=== PATIENT | female | born 1990 | race Two or more races ===

== ENCOUNTER 2021-04-10 09:06 | Emergency (ER) | payer OTHER ==
[~2021-04-10] VITALS: Ht 149.9 cm; Wt 58.1 kg
[2021-04-10 09:28] VITALS: BP 98/55
== END 2021-04-10 10:25 | disposition home or self-care (01) ==
LOC: ER 09:06
DX: G56.02 Carpal tunnel syndrome, left upper limb (principal)
CPT/HCPCS: 29125; 81002; 81025

== ENCOUNTER 2022-10-17 20:32 | Emergency (ER) | payer OTHER ==
[~2022-10-17] VITALS: Ht 149.9 cm; Wt 58.6 kg
[2022-10-17 21:44] LABS: Basophils # (auto) 0.1 10 ^3/uL (0-0.2); Basophils % (auto) 0.9 % (0.0-2.0); Eosinophils # (auto) 0.2 10 ^3/uL (0-0.8); Eosinophils % (auto) 2.6 % (0.0-7.0); Hematocrit 38.9 % (36.0-46.0); Hemoglobin 13.7 g/dL (12.2-16.2); Lymphocytes # (auto) 3.7 10 ^3/uL (0.4-5.4); Lymphocytes % (auto) 42.8 % (10.0-50.0); Mean Corpuscular Hemoglobin 30.7 pg (28.0-32.0); Mean Corpuscular Hgb Conc. 35.2 g/dL (32.0-36.0); Mean Corpuscular Volume 87.1 fL (80.0-100.0); Monocytes # (auto) 0.5 10 ^3/uL (0-1.3); Monocytes % (auto) 6.1 % (0.0-12.0); Neutrophils # (auto) 4.1 10 ^3/uL (1.6-8.6); Neutrophils % (auto) 47.6 % (37.0-80.0); Nucleated Red Blood Cells % 0.2 %; Red Blood Cells 4.47 10^6/uL (4.0-5.20); Red Cell Distribution Width 13.1 % (11.8-14.3); White Blood Cell 8.7 10^3/uL (4.4-10.8)
[2022-10-17 21:49] LABS: Urine Amorphous Crystal FEW /hpf (None Seen); Urine Bacteria NONE SEEN /hpf (None Seen); Urine Blood Negative /uL (Negative); Urine Specific Gravity 1.019 (1.001-1.035); Urine WBC 3 /hpf (0 - 5)
[2022-10-17 22:07] LABS: INR 0.89 (0.9-1.15); Partial Thromboplastin Time 25.3 sec (24.6-33.4)
[2022-10-17 22:17] LABS: Alanine Aminotransferase 65 U/L (13-56); Albumin 3.7 g/dL (3.4-5.0); Anion Gap 9 (5-15); Aspartate Aminotransferase 33 U/L (15-37); BUN/Creatinine Ratio 19.7 (10.0-20.0); Blood Urea Nitrogen 12 mg/dL (7-18); Calcium 8.7 mg/dL (8.5-10.1); Carbon Dioxide 21 mmol/L (21-32); Chloride 108 mmol/L (98-107); GFR African American 144 mL/min; GFR Non-African American 119 mL/min; Glucose 129 mg/dL (74-106); Magnesium 2.3 mg/dL (1.6-2.6); Potassium 3.7 mmol/L (3.5-5.1); Sodium 138 mmol/L (136-145)
[2022-10-17 22:20] LABS: Alkaline Phosphatase 49 U/L (45-117); Bilirubin, Total 0.4 mg/dL (0.2-1.0); Total Protein 8.1 g/dL (6.4-8.2)
[2022-10-17] MEDS ORDERED: KETOROLAC TROMETH 30 MG/ML 1ML VIAL IM ONE (23:00)
[2022-10-17] MEDS ORDERED: methylPREDNISolone SOD SUCC 125 MG/2 ML VL IM ONE (23:00)
[2022-10-17] MEDS ORDERED: IBUP600T27 PO (23:04)
[2022-10-17] MEDS ORDERED: AMOX-277 PO (23:04)
[2022-10-17 23:27] VITALS: BP 115/77
== END 2022-10-17 23:33 | disposition home or self-care (01) ==
LOC: ER 20:32
DX: J32.9 Chronic sinusitis, unspecified (principal); F41.9 Anxiety disorder, unspecified
CPT/HCPCS: 36415; 70450; 80053; 81001; 83735; 83880; 84484; 84702; 85025; 85610; 85730; 96372; 99285; J1885; J2930

== ENCOUNTER 2025-03-20 07:39 | Emergency (ER) | payer OTHER ==
[~2025-03-20] VITALS: Ht 149.9 cm; Wt 58.6 kg
[~2025-03-20 07:39] MED LIST: AMOX875T4 PO; IBUP-1454 PO
[2025-03-20 07:42] VITALS: TEMP 97.4
--- NOTE | 2025-03-20 08:04 | ED.PDOC ---
ELECTROCARDIOGRAM TECHNICIAN HPI Comments This is a 34 year old female presenting to the ED with chief complaint of vaginal bleeding. Patient reports that since this morning, she has been experiencing vaginal bleeding with associated small clots noted. Patient relays that she is currently 8-9 weeks and follows up with an OBGYN in [place]. Patient states that she has had previous miscarriages in the past. Patient notes she last had intercourse last night. Patient denies any abdominal pain, N/V/D, dysuria, hematuria, dizziness, fever, or chills. Chief Complaint: Vaginal Bleed Time Seen by MD: 08:01 Reviewed Notes: Nurses Notes, Medications, Allergies Allergies: Coded Allergies: NO KNOWN ALLERGIES (Unverified , 10/17/22) Home Meds Active Scripts Ibuprofen (Ibuprofen) 600 Mg Tab, 1 TAB PO TID, #30 TAB Prov:JOHN KATZ 10/17/22 Amoxicillin & Pot Clavulanate (Amoxicillin/Potassium Cla) 875 Mg Tab, 1 TAB PO BID for 10 Days, #20 TAB Prov:JOHN KATZ 10/17/22 Information Source: Patient Mode of Arrival: Ambulatory Timing: Hours Prehospital treatment: None Severity: Moderate Vaginal Discharge: None Vaginal Lesions: None Bleeding Quality: Bright Red Vaginal Mass: None Onset Of Mass/Bleeding: Spontaneous Sexual Activity: Last Consensual [place]: Hours Control: None History of: Current Associated Signs and Symptoms: Vaginal Bleeding Past Medical History PAST MEDICAL HISTORY: Anxiety, High Lipids, HTN Surgical History: Denies all surgeries GIN OPERATOR History: Denies all GIN OPERATOR Hx Family History Family History: Reviewed,noncontributory to illness, Family hx of DM, Family hx of HTN Family History (Other): HLD Social History Smoker: Non-Smoker Alcohol: Denies ETOH Use Drugs: Denies Drug Use Lives In: Home Constitutional: denies: chills, diaphoresis, fatigue, fever, malaise, sweats, weakness, others EENTM: denies: blurred vision, double vision, ear bleeding, ear discharge, ear drainage, ear pain, ear ringing, eye pain, eye redness, hearing loss, mouth pain, mouth swelling, nasal discharge, nose bleeding, nose congestion, nose pain, photophobia, tearing, throat pain, throat swelling, voice changes, others Respiratory: denies: cough, hemoptysis, orthopnea, SOB at rest, shortness of breath, SOB with excertion, stridor, wheezing, others Cardiovascular: denies: chest pain, dizzy spells, diaphoresis, Dyspnea on exertion, edema, irregular heart beat, left arm pain, lightheadedness, palpitations, PND, syncope, others Gastrointestinal: denies: abdomen distended, abdominal pain, blood streaked bowels, constipated, diarrhea, dysphagia, difficulty swallowing, hematemesis, melena, nausea, poor appetite, poor fluid intake, rectal bleeding, rectal pain, vomiting, others Genitourinary: reports: abnormal vagina bleeding, ; denies: burning, dyspareunia, dysuria, flank pain, frequency, hematuria, incontinence, pain, vagina discharge, urgency, others Neurological: denies: dizziness, fainting, headache, left sided numbness, left sided weakness, numbness, paresthesia, pre-existing deficit, right sided numbness, right sided weakness, seizure, speech problems, tingling, tremors, weakness, others Musculoskeletal: denies: back pain, gout, joint pain, joint swelling, muscle pain, muscle stiffness, neck pain, others Integumetry: denies: bruises, change in color, change in hair/nails, dryness, laceration, lesions, lumps, rash, wounds, others Allergic/Immunocompromised: denies: Difficulty Healing, Frequent Infections, Hives, Itching, others Hematologic/Lymphatic: denies: anemia, blood clots, easy bleeding, easy bruising, swollen glands, others Endocrine: denies: excessive hunger, excessive sweating, excessive thirst, excessive urination, flushing, intolerance to cold, intolerance to heat, unexplained weight gain, unexplained weight loss, others Psychiatric: denies: anxiety, bipolar disorder, depression, hopeless, panic disorder, schizophrenia, sleepless, suicidal, others All Other Systems: Reviewed and Negative Physical Exam General Appearance: No Apparent Distress HEENT: Normal ENT Inspection, Pharynx Normal, TMs Normal Neck: Full Range of Motion, Non-Tender, Normal, Normal Inspection Respiratory: Chest Non-Tender, Lungs Clear, No Accessory Muscle Use, No Respiratory Distress, Normal Breath Sounds Cardiovascular: No Edema, No JVD, No Murmur, No Gallop, Normal Peripheral Pulses, Regular Rate/Rhythm Breast Exam: Deferred Gastrointestinal: No Organomegaly, Non Tender, No Pulsatile Mass, Normal Bowel Sounds, Soft Genitalia: Deferred Pelvic: Deferred Rectal: Deferred Extremities: No calf tenderness, Normal capillary refill, Normal inspection, Normal range of motion, Non-tender, No pedal edema Musculoskeletal : Apperance: Normal Neurologic: Alert, barge pilot II-XII nml as Tested, No Motor Deficits, Normal Affect, Normal Mood, No Sensory Deficits Cerebellar Function: Normal Reflexes: Normal Skin: Dry, Normal Color, Warm Lymphatic: No Adenopathy Was a procedure done? Was a procedure done?: No Differential Diagnosis (GIN OPERATOR) Vaginal Bleeding: - Incomplete, - Threatened X-Ray, Labs, Meds, VS Vital Signs Date Time Temp Pulse Resp B/P (MAP) Pulse Ox O2 Delivery O2 Flow Rate FiO2 03/20/25 07:42 97.4 74 16 107/66 100 97.4 Lab Test 03/20/25 08:25 03/20/25 08:10 Range/Units Urine Color Light-yellow Yellow Urine Clarity Clear Clear Urine pH 6.0 5.0-9.0 Urine Specific [place] 1.018 1.001-1.035 Urine Protein Negative Negative Urine Ketones Negative Negative Urine Blood 3+ H Negative /uL Urine Nitrite Negative Negative Urine Bilirubin Negative Negative Urine Urobilinogen Normal Negative mg/dL Urine Leukocyte Esterase Negative Negative /uL Urine RBC 233 0 - 4 /hpf Urine Microscopic WBC < 1 0-5 /HPF Urine Squamous Epithelial Cells Few <5 /hpf Urine Bacteria None seen None Seen /hpf Urine Mucus Few None Seen Urine Glucose Normal Normal mg/dL Beta HCG, Quantitative 39243.6 H 1.5-4.2 mIU/mL OB US indicates: 1. Single viable intrauterine with estimated gestational age of 7 weeks 0 days. Urine test is negative at this time. Patient will be discharged home to follow up with their OBGYN. The patient is concerned about the viability and we did explain that the patient is to have bedrest Images Reviewed?: Images reviewed and evaluated by me Time of 1ST Reevaluation: 09:56 Reevaluation 1ST: Improved Patient Education/Counseling: Diagnosis, Treatment, Prognosis, Need For Follow Up Family Education/Counseling: No Family Present Departure 1 Departure Time of Disposition: 09:56 Impression: Primary Impression: Threatened Disposition: HOME / SELF CARE / HOMELESS Condition: Fair Discharged With: Self Critical Care Note Critical Care Time?: No Stability Stability form required: No Heart Score Heart Score: Heart Score Response (Comments) Value History N/A 0 EKG N/A 0 Age N/A 0 Risk Factors N/A 0 Troponin N/A 0 Total 0 I personally scribed for JOSE JOHNSON MD ([email or web address]) on 03/20/25 at 08:03. Electronically submitted by Gilberto Espinal ([email or web address]). I personally scribed for JOSE JOHNSON MD ([email or web address]) on 03/20/25 at 09:54. Electronically submitted by Gilberto Espinal ([email or web address]). I personally scribed for JOSE JOHNSON MD ([email or web address]) on 03/20/25 at 09:55. Electronically submitted by Gilberto Espinal ([email or web address]). JOSE JOHNSON MD Mar 20, 2025 08:03
[2025-03-20 08:40] LABS: Urine Protein, UAD Negative (Negative)
--- NOTE | 2025-03-20 09:52 | DVH ---
CLINICAL HISTORY: pain COMPARISON: None TECHNIQUE: Transvaginal sonographic grayscale images of the pelvis obtained. FINDINGS: Gestational sac measures 2.2 cm, which is consistent with an estimated gestational age of 6 weeks and 5 days. [place] rump length measures 1.06 cm, which is consistent with an estimated gestational age of 7 weeks and 1 days. heart rate: 152 bpm. Gestational age (ultrasound): 7 weeks 0 days. HAYDEN (ultrasound): 11/10/2025. The uterus measures 10.7 x 5.6 x 4.4 cm and shows normal echogenicity. The right ovary measures 2.0 x 1.5 x 1.5 cm and shows normal echogenicity. The left ovary measures 3.0 x 2.0 x 2.4 cm and shows anechoic cyst measuring 2.3 cm. No free fluid is seen. There is no solid pelvic mass. IMPRESSION: 1. Single viable intrauterine with estimated gestational age of 7 weeks 0 days.
[2025-03-20 09:59] VITALS: BP 106/64; PULSE 75; RESP 18; O2SAT 99
== END 2025-03-20 10:06 | disposition home or self-care (01) ==
LOC: ER 07:43
DX: O20.0 Threatened abortion (principal); Z3A.09 9 weeks gestation of pregnancy; Z79.899 Other long term (current) drug therapy
CPT/HCPCS: 36415; 76801; 81001; 84702

== ENCOUNTER 2025-04-30 09:25 | Emergency (ER) | payer OTHER ==
[~2025-04-30] VITALS: Ht 149.9 cm; Wt 59.0 kg
--- NOTE | 2025-04-30 10:08 | ED.PDOC ---
GI ASSESSMENT HPI Comments 34 year old female with PMHx HTN, HLD, anxiety presents to the ED with a chief complaint of abdominal pain onset 1 day. Patient states she is currently 13 weeks 5 days , P:2 A:2. She was walking, ran into corner of table, hitting LT mid abdomen. She is currently experiencing mid Lt abdominal discomfort. Denies vaginal bleeding, nausea, vomiting, diarrhea, chest pain, shortness of breath, headache, dizziness, fever, chills. No other symptoms or modifying factors present at this time. Chief Complaint: Abdominal Pain Time Seen by MD: 09:50 Primary Care Provider: MIKE Reviewed Notes: Medications, Allergies Allergies: Coded Allergies: NO KNOWN ALLERGIES (Unverified , 10/17/22) Home Meds Active Scripts Ibuprofen (Ibuprofen) 600 Mg Tab, 1 TAB PO TID, #30 TAB Prov:JOHN ELIAS 10/17/22 Amoxicillin & Pot Clavulanate (Amoxicillin/Potassium Cla) 875 Mg Tab, 1 TAB PO BID for 10 Days, #20 TAB Prov:JOHN ELIAS 10/17/22 Information Source: Patient Mode of Arrival: Ambulatory Timing: Days Duration: Since onset Prehospital treatment: None Quality: Aching Vomitus: None Severity: Moderate Recent: None Recent Hx of: Current Past Medical History PAST MEDICAL HISTORY: Anxiety, High Lipids, HTN Surgical History: Denies all surgeries 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 BASIC EDUCATION TEACHER Hx Family History Family History: Reviewed,noncontributory to illness, Family hx of DM, Family hx of HTN Family History (Other): HLD Social History Smoker: Non-Smoker Alcohol: Denies ETOH Use Drugs: Denies Drug Use Lives In: Home Constitutional: denies: chills, diaphoresis, fatigue, fever, malaise, sweats, weakness, others EENTM: denies: blurred vision, double vision, ear bleeding, ear discharge, ear drainage, ear pain, ear ringing, eye pain, eye redness, hearing loss, mouth pain, mouth swelling, nasal discharge, nose bleeding, nose congestion, nose pain, photophobia, tearing, throat pain, throat swelling, voice changes, others Respiratory: denies: cough, hemoptysis, orthopnea, SOB at rest, shortness of breath, SOB with excertion, stridor, wheezing, others Cardiovascular: denies: chest pain, dizzy spells, diaphoresis, Dyspnea on exertion, edema, irregular heart beat, left arm pain, lightheadedness, palpitations, PND, syncope, others Gastrointestinal: reports: abdominal pain; denies: abdomen distended, blood streaked bowels, constipated, diarrhea, dysphagia, difficulty swallowing, hematemesis, melena, nausea, poor appetite, poor fluid intake, rectal bleeding, rectal pain, vomiting, others Genitourinary: reports: ; denies: abnormal vagina bleeding, burning, dyspareunia, dysuria, flank pain, frequency, hematuria, incontinence, pain, vagina discharge, urgency, others Neurological: denies: dizziness, fainting, headache, left sided numbness, left sided weakness, numbness, paresthesia, pre-existing deficit, right sided numbness, right sided weakness, seizure, speech problems, tingling, tremors, weakness, others Musculoskeletal: denies: back pain, gout, joint pain, joint swelling, muscle pain, muscle stiffness, neck pain, others Integumetry: denies: bruises, change in color, change in hair/nails, dryness, laceration, lesions, lumps, rash, wounds, others Allergic/Immunocompromised: denies: Difficulty Healing, Frequent Infections, Hives, Itching, others Hematologic/Lymphatic: denies: anemia, blood clots, easy bleeding, easy bruising, swollen glands, others Endocrine: denies: excessive hunger, excessive sweating, excessive thirst, excessive urination, flushing, intolerance to cold, intolerance to heat, unexplained weight gain, unexplained weight loss, others Psychiatric: denies: anxiety, bipolar disorder, depression, hopeless, panic disorder, schizophrenia, sleepless, suicidal, others All Other Systems: Reviewed and Negative Physical Exam General Appearance: No Apparent Distress, Normal HEENT: Normal ENT Inspection, Pharynx Normal, TMs Normal Neck: Full Range of Motion, Non-Tender, Normal, Normal Inspection Respiratory: Chest Non-Tender, Lungs Clear, No Accessory Muscle Use, No Respiratory Distress, Normal Breath Sounds Cardiovascular: No Edema, No JVD, No Murmur, No Gallop, Normal Peripheral Pulses, Regular Rate/Rhythm Breast Exam: Deferred Gastrointestinal: No Organomegaly, No Pulsatile Mass, Normal Bowel Sounds, Tenderness (LT mid abdomen), Other (LT mid abdominal tenderness with no bruising or swelling. no superpubic tenderness) Genitalia: Deferred Pelvic: Deferred Rectal: Deferred Extremities: No calf tenderness, Normal capillary refill, Normal inspection, Normal range of motion, Non-tender, No pedal edema Musculoskeletal : Apperance: Normal Neurologic: Alert, travel rn or II-XII nml as Tested, No Motor Deficits, Normal Affect, Normal Mood, No Sensory Deficits Cerebellar Function: Normal Reflexes: Normal Skin: Dry, Normal Color, Warm Lymphatic: No Adenopathy Was a procedure done? Was a procedure done?: No GI differential Dx Differential Diagnosis: Other (uterine injury, subchorionic hemorrhage, abdominal wall contusion) X-Ray, Labs, Meds, VS Vital Signs Date Time Temp Pulse Resp B/P (MAP) Pulse Ox O2 Delivery O2 Flow Rate FiO2 04/30/25 10:28 82 16 96 Room Air* 0 21 04/30/25 10:27 98.2 89 16 98/39 (58) 99 98.2 04/30/25 09:30 98.6 105 16 102/61 99 98.6 Time of 1ST Reevaluation: 10:20 Reevaluation 1ST: Unchanged Patient Education/Counseling: Diagnosis, Treatment, Prognosis Family Education/Counseling: No Family Present Comments pt is 13.5 weeks and had a mild blunt injury to the abdomen. she is concerned about her . she denies bleeding. however, even minor trauma can threaten a . the US is unremarkable. she is Rh +. however, pt signed AMA before US report is back SEPSIS Sepsis Screen Date sepsis recognized/suspect: Apr 30, 2025 Time Sepsis recognized/suspect: 929 Recent Procedure: No On Antibiotic Therapy: No Respiratory Rate >20: No Heart Rate >90: Yes Temp<36 C (96.8 F) or >38.3 C: No SBP <90 or MAP <65 mmHG: No New Acute Mental Status Change: No Is the patient on CPAP, BIPAP,: No Physician Orders Ob Ultrasound Comp Less 14wks (04/30/25 10:25) Vital Signs Date Time Temp Pulse Resp B/P (MAP) Pulse Ox O2 Delivery O2 Flow Rate FiO2 04/30/25 10:28 82 16 96 Room Air* 0 21 04/30/25 10:27 98.2 89 16 98/39 (58) 99 98.2 04/30/25 09:30 98.6 105 16 102/61 99 98.6 Departure 1 Departure Time of Disposition: 11:35 Impression: Primary Impression: Abdominal wall contusion Additional Impressions: Intrauterine Feared condition not demonstrated Disposition: 07 LEFT AGAINST MEDICAL ADVICE Condition: Good Discharged With: Self Critical Care Note Critical Care Time?: No Stability Stability form required: No Heart Score Heart Score: Heart Score Response (Comments) Value History N/A 0 EKG N/A 0 Age N/A 0 Risk Factors N/A 0 Troponin N/A 0 Total 0 I personally scribed for LYNDON WALSH MD ([email or web address]) on 04/30/25 at 10:08. Electronically submitted by Susan Barron ([email or web address]). LYNDON WALSH MD Apr 30, 2025 10:08
[2025-04-30 10:27] VITALS: BP 98/39; TEMP 98.2
[2025-04-30 10:28] VITALS: PULSE 82; RESP 16; O2SAT 96
--- NOTE | 2025-04-30 11:25 | DVH ---
Technique: Real-time ultrasound images through the pelvis using a transabdominal transducer. Indication: pain Comparison: US OB ULTRASOUND COMP LESS 14WKS on DOS: 03/20/25 Findings: The uterus measures 14.5 cm. Intrauterine gestational sac measuring 5.5 cm. crown-rump length 7.3 cm. heart rate 146 beats per minute. Placenta appears to be developing posteriorly. Anterior wall slightly hypoechoic region measuring 3.1 x 3.6 cm not present Right ovary measures 2.3 x 2 x 2.0 cm. Normal flow on color doppler images. No focal masses are identified. Left ovary measures 3.4 x 1.6 x 2.6 cm. Normal flow on color doppler images. Left ovarian cyst measuring 2 x 1.9 cm. There is no significant free fluid in the pelvis. Impression: Single live intrauterine dating to 12 weeks, 4 days. heart rate of 146 beats per minute. Hypoechoic region within the anterior uterine wall measuring 3.6 x 3.1 cm not present previous examination, possibly region of myometrial contraction. Correlate clinically. Recommend continued follow-up. 2.0 cm left ovarian cyst.
== END 2025-04-30 11:20 | disposition left against medical advice (07) ==
LOC: ER 09:25
DX: O34.81 Maternal care for other abnormalities of pelvic organs, first trimester (principal); S30.11XA Contusion of abdominal wall, initial encounter; E78.5 Hyperlipidemia, unspecified; Z3A.13 13 weeks gestation of pregnancy; W22.03XA Walked into furniture, initial encounter; Y93.89 Activity, other specified; Y92.89 Other specified places as the place of occurrence of the external cause; Y99.8 Other external cause status
CPT/HCPCS: 76801; 86900; 86901